=== PATIENT | female | born 1975 | race Caucasian/White ===

== ENCOUNTER 2023-06-28 19:58 | Outpatient (REF) | payer OTHER, SELFPAY ==
[2023-07-04 12:09] LABS: Age Gdln ACOG Testing Note (.); HPV Aptima Negative (Negative); IGP, Aptima HPV, rfx 16/18,45 Note (.)
== END 2023-06-28 19:59 | disposition home or self-care (01) ==
LOC: LAB 19:58
PROVIDERS: Visit Provider Obstetrics & Gynecology
DX: Z12.4 Encounter for screening for malignant neoplasm of cervix (principal)
CPT/HCPCS: 87624; G0145

== ENCOUNTER 2024-07-29 20:57 | Outpatient (REF) | payer OTHER, SELFPAY ==
[2024-08-05 20:08] LABS: Age Gdln ACOG Testing Note (.); HPV Aptima Negative (Negative); IGP, Aptima HPV, rfx 16/18,45 Note (.)
== END 2024-07-29 20:58 | disposition home or self-care (01) ==
LOC: LAB 20:57
PROVIDERS: Visit Provider Obstetrics & Gynecology
DX: Z01.419 Encounter for gynecological examination (general) (routine) without abnormal findings (principal)
CPT/HCPCS: 87624; 88175

== ENCOUNTER 2025-08-04 11:58 | Outpatient (REF) | payer OTHER, SELFPAY ==
--- OUTSIDE RECORDS SUMMARY | 2025-07-30 08:40 | XMS_ITS | Encounter Summary ---
Author Organization [facility] Address [address] [place] [address] Care Team Providers Care Game Artist Name Role Phone Yomaira Lynch MD Primary Care Provider [phone] Doretha Hammonds FIELD SOFTWARE ENGINEER Unavailable [phone] Reason for Visit * ReasonCommentsSkin Check Encounter Details DateTypeDepartmentCare Team (Latest Contact Info)Ojlvqzmspmj71/29/2025 9:40 AM EDTOffice Visit [facility] [address] [place] [address] Adriana Patel PA [address] [place] [address] Capillary angioma (Primary Dx); Seborrheic keratosis; Lentigo simplex; Dermatofibroma Social History Tobacco UseTypesPacks/DayYears UsedDateSmoking Tobacco: NeverPassive Smoke Exposure: NeverSmokeless Tobacco: NeverAlcohol UseStandard Drinks/WeekComments Yes0 (1 standard drink = 0.6 oz pure alcohol)Very rare occasionSocial Connection and Isolation PanelAnswerDate RecordedIn a typical week, how many times do you talk on the phone with family, friends, or neighbors?Twice a week02/27/2024How often do you get together with friends or relatives?Once a week02/27/2024How often do you attend mandaeism or uatsdin services?More than 4 times per year 02/27/2024o you belong to any clubs or organizations such as mandaeism groups, unions, fraternal or athletic groups, or school groups?No02/27/2024ttends Club or Organization MeetingsNot on file02/27/2024re you , , , , never , or living with a partner?Cjoehrm6402/27/2024UDIT-C AnswerDate RecordedQ1: How often do you have a drink containing alcohol?Monthly or less02/27/2024Q2: How many drinks containing alcohol do you have on a typical day when you are drinking?1 or Q3: How often do you have six or more drinks on one occasion?Never02/27/2024Overall Financial Resource Strain (CARDIA) AnswerDate RecordedHow hard is it for you to pay for the very basics like food, housing, medical care, and heating?Not hard at all02/27/2024HQ-2AnswerDate RecordedPatient Health Questionnaire-2 Fvexi927[facility] [place] of Occupational Health - Occupational Stress QuestionnaireAnswerDate RecordedDo you feel stress - tense, restless, nervous, or anxious, or unable to sleep at night because yourmind is troubled all the time - these days?Only a zyloat4402/27/2024 Exercise Vital SignAnswerDate RecordedOn average, how many days per week do you engage in moderate to strenuous exercise (like a brisk walk)?0 days02/27/2024On average, how many minutes do you engage in exercise at this level?0 min 02/27/2024Hunger Vital SignAnswerDate RecordedWithin the past 12 months, you worried that your food would run out before you got the money to buymore.Never true02/27/2024Within the past 12 months, the food you bought just didn't last and you didn't have money to get more.Never true02/27/2024RAPARE - TransportationAnswerDate RecordedIn the past 12 months, has lack of transportation kept you from medical appointments or from getting medications?No 02/27/2024In the past 12 months, has lack of transportation kept you from meetings, work, or from getting things needed for daily living?No02/27/2024 Housing Stability Vital SignAnswerDate RecordedIn the last 12 months, was there a time when you were not able to pay the mortgage or rent on time?No02/27/2024In the last 12 months, how many places have you lived?In the last 12 months, was there a time when you did not have a steady place to sleep or slept in ashelter (including now)?No02/27/2024CommentsNoSex and Gender InformationValueDate RecordedSex Assigned at MznizSnpsmp18/24/2023 10:19 AM EDT Legal YwtIcbfpv70/15/2023 6:33 PM EDTGender PcgoukogEaowmn96/24/2023 10:19 AM EDTSexual QqicbgxkkdqRlqoehlz62/28/2024 8:25 PM EDTdocumented as of this encounter Progress Notes * MINDI Connelly - 07/30/2025 9:40 AM EDT Skin Check Location: Patient requests a full body skin examination Dermatologic history: no history of skin cancer, no history of atypical moles Last visit: 1 year ago Established patient All pertinent medical history, medications, and allergies were reviewed. General Exam: alert, oriented to person, place, and time, normal affect, well appearing Unaccompanied Scalp, Examined , exam limited by hair Right leg Examined Head, Face Examined Left leg Examined Neck Examined Right foot Examined Chest Examined Left foot Examined Back Examined , limited by bra Buttocks Examined , limited by underwear Abdomen Examined Digits,nails: Examined Right arm Examined Patient is wearing nail swedish. Denies any dark streaks. Left arm Examined Lymphatics: Not examined Hands Examined Skin Exam 1. SEBORRHEIC KERATOSIS Generalized Stuck on verrucous, burnett-brown papules and plaques. Patient was counseled regarding these benign growths. Removal is normally not necessary, but they may be removed if they are symptomatic or for cosmetic reasons. 2. 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 The patient was informed that angiomas are benign growths on the the skin. No treatment is necessary. 3. LENTIGO SIMPLEX Generalized Scattered burnett macules in sun-exposed areas. The patient was informed that lentigines are benign pigmented lesions that occur on sun-exposed andsun-damaged skin. No treatment is necessary. Recommended regular use of broad spectrum sunscreen SPF 30 or higher 4. DERMATOFIBROMA Right Lower Leg - Posterior Firm brown papule that dimples with lateral pressure. Discussed that these are benign scars on the skin. If lesion is changing/symptomatic, return to office to have lesion re-evaluated Next Visit: 1 year, skin check documented in this encounter Plan of Treatment DateTypeDepartmentCare Team (Latest Contact Info)Dyuqcftvico81/05/2025 10:00 AM ESTClinical Support [facility] [address] [address] 03/02/2026 8:30 AM EDTOffice Visit [facility] [address] [place] [phone] Asha Lawrence NP [address], [place] [id number] 07/29/2026 9:50 AM EDTOffice Visit [facility] [address] [place] [address] Adriana Patel PA [address] [place] [address] 08/10/2026 8:30 AM ESTProcedure Visit [facility] [address] [place] [address] Reji Wall DO [address] [place], [place] [id number] documented as of this encounter Visit Diagnoses Diagnosis Capillary angioma- Primary Nevus, non-neoplastic Seborrheic keratosis Lentigo simplex Other dyschromia Dermatofibroma Benign neoplasm of skin, site unspecified documented in this encounter Additional Health Concerns AssessmentNoted TimePHQ-9 Depression Total Score: 11:03 AM EDT documented as of this encounter Care Teams Team MemberRelationshipSpecialtyStart DateEnd Date Yomaira Lynch MD PCP - GeneralFamily Medicine02/22/23 Doretha Hammonds NP Nurse PractitionerFamily Medicine02/22/23documented as of this encounter
--- OUTSIDE RECORDS SUMMARY | 2025-08-04 09:00 | XMS_ITS | Encounter Summary ---
Author Organization [facility] Address [address] [place] [address] Care Team Providers Care Transplant Nurse Name Role Phone Yomaira Lynch MD Primary Care Provider [phone] Doretha Hammonds PHYSICAL THERAPY PROFESSOR Unavailable [phone] Reason for Visit * ReasonCommentsGynecologic Exam Encounter Details DateTypeDepartmentCare Team (Latest Contact Info)Bfnbaumaupj55/03/2025 9:00 AM ESTOffice Visit [facility] [address] [place] [phone] Reji Wall DO [address] [place], [place] [id number] Well woman exam with routine gynecological exam; Encounter for screening mammogram for malignant neoplasm of breast; Postmenopausal state Social History Tobacco UseTypesPacks/DayYears UsedDateSmoking Tobacco: NeverPassive [...] relatives?Once a week02/27/2024How often do you attend congregation or mormon services?More than 4 times per year 02/27/2024o you belong to any clubs or organizations such as congregation groups, unions, fraternal or athletic groups, or school groups?No02/27/2024ttends Club or Organization MeetingsNot on file02/27/2024re you , , , , never , or living with a partner?Wovgkkt2302/27/2024UDIT-C AnswerDate RecordedQ1: How often do you have [...] heating?Not hard at all02/27/2024HQ-2AnswerDate RecordedPatient Health Questionnaire-2 Mprwo571Finshriners hospitals for [facility] [place] of Occupational Health - Occupational Stress QuestionnaireAnswerDate RecordedDo you feel stress - tense, restless, nervous, or anxious, or unable to sleep at night because yourmind is troubled all the time - these days?Only a yizgca7502/27/2024 Exercise Vital SignAnswerDate RecordedOn average, how many [...] steady place to sleep or slept in anawaltelter (including now)?No02/27/2024CommentsNoSex and Gender InformationValueDate RecordedSex Assigned at XsjqwOfrezo57/24/2023 10:19 AM EDT Legal DddQxagup84/15/2023 6:33 PM EDTGender QvvblkzmFlrjot22/24/2023 10:19 AM EDTSexual LjrydglydrhArnnhekf71/28/2024 8:25 PM EDTdocumented as of this encounter Last Filed Vital Signs Vital SignReadingTime TakenCommentsBlood Vzsrwuho228/7611 9:03 AM EST Pulse--Temperature--Respiratory Rate--Oxygen Saturation--Inhaled Oxygen Concentration--Iudjge304 kg (246 lb 12.8 oz)08/04/2025 9:03 AM ESTHeight--Body Mass Index36.9805 8:17 AM EDTdocumented in this encounter Progress Notes * Yesenia Cook MA - 08/04/2025 9:00 AM EST Reason for Appointment: Patient ID: Helga Alonso is a 49 y.o. female who presents for Gynecologic Exam Patient presents today for Annual Exam. MEDICATIONS Current Outpatient Medications Medication Instructions acetaminophen (Tylenol) 500 MG tablet Take by mouth albuterol HFA 90 mcg/act inhaler 2 puffs, Every 4 hours PRN estradiol (ESTRACE) 1 mg, Oral, Daily Ibuprofen 400 mg, Once loratadine (Claritin) 10 MG tablet Every 24 hours melatonin 5 MG tablet Take by mouth Multiple Vitamin (multivitamin) tablet 1 tablet, Daily omeprazole OTC (PRILOSEC OTC) 20 mg, Daily before breakfast Singulair 10 MG tablet Every 24 hours ALLERGIES Allergies Allergen Reactions Metformin Hcl Other Reaction(s): diarrhea Other Unknown PROBLEMS Active Ambulatory Problems Diagnosis Date Noted Abnormal glucose level 01/27/2023 Anxiety disorder, unspecified 01/27/2023 Calculus of kidney and ureter 01/27/2023 Enlarged thyroid 01/27/2023 Fatty liver 01/27/2023 Hypertriglyceridemia 01/27/2023 Internal derangement of right knee 01/27/2023 Left ventricular hypertrophy 01/27/2023 Low HDL (under 40) 01/27/2023 Mild intermittent asthma (HCC) 01/27/2023 Obesity (BMI 30-39.9) 01/27/2023 Osteoarthritis of lumbar spine 01/27/2023 Other lipoprotein metabolism disorders 01/27/2023 Postinflammatory pulmonary fibrosis (HCC) 01/27/2023 Polycystic ovaries 01/27/2023 Seasonal allergies 01/27/2023 Seborrheic keratoses 01/27/2023 Sensorineural hearing loss, bilateral 01/27/2023 SOB (shortness of breath) on exertion 01/27/2023 Status post hysterectomy 01/27/2023 Tinnitus 01/27/2023 Fatigue 02/23/2023 Screening mammogram for breast cancer 02/23/2023 Chronic pain of right knee 11/29/2023 Patellar tendonitis of right knee 11/29/2023 Thyroid nodule 03/20/2024 Allergic rhinitis 04/19/2024 ILD (interstitial lung disease) (HCC) 04/19/2024 Pulmonary granuloma (HCC) 04/19/2024 Reactive depression 04/21/2024 Well woman exam with routine gynecological exam 07/29/2024 TATYANA on CPAP 09/18/2024 Resolved Ambulatory Problems Diagnosis Date Noted No Resolved Ambulatory Problems Past Medical History: Diagnosis Date Arthritis Asthma (HCC) Benign neoplasm BMI 38.0-38.9,adult Breast cancer screening other than mammogram 02/22/2023 Calcified nodule Disorder of lipid metabolism GERD (gastroesophageal reflux disease) Hematuria IBS (irritable bowel syndrome) Pain in joint Pap smear for cervical cancer screening 04/29/2020 Skin neoplasm HISTORY PAST MEDICAL HISTORY SOCIAL HISTORY Past Medical History: Diagnosis Date Allergic rhinitis cause unspecified Arthritis Asthma (HCC) Benign neoplasm BMI 38.0-38.9,adult Breast cancer screening other than mammogram 02/22/2023 NEG Calcified nodule lung Calculus of kidney and ureter Disorder of lipid metabolism Fatty liver GERD (gastroesophageal reflux disease) Hematuria IBS (irritable bowel syndrome) Pain in joint multiple sites Pap smear for cervical cancer screening 04/29/2020 NEG Polycystic ovaries Skin neoplasm of uncertain behavior Social History Tobacco Use Smoking status: Never Passive exposure: Never Smokeless tobacco: Never Vaping Use Vaping status: Never Used Substance Use Topics Alcohol use: Yes Alcohol/week: 0.0 - 1.0 standard drinks of alcohol Comment: Very rare occasion Drug use: Never FAMILY HISTORY Family History Problem Relation Name Age of Onset Breast cancer Mother Agnes Cancer Mother Agnes No Known Problems Sister 2 sisters, healthy No Known Problems Brother 1 brother, healthy Cancer Maternal Grandfather [place] Melanoma Neg Hx SURGICAL HISTORY Past Surgical History: Procedure Laterality Date APPENDECTOMY BREAST LUMPECTOMY Right [address] Mendez HYSTERECTOMY 2008 w/ one ovary removed OOPHORECTOMY Left 05/2016 OTHER SURGICAL HISTORY 04/2016 urethral stent placement OTHER SURGICAL HISTORY 06/2016 stent removal PA ARTHROSCOPY KNEE DIAGNOSTIC W/WO SYNOVIAL BX SPX Right 2003 Dr. Pinto [place] ARTHROSCOPY KNEE DIAGNOSTIC W/WO SYNOVIAL BX SPX Right 10/29/[address] Pinto [place] REMOVAL, ABDOMEN LYMPH NODE,STAGING as a child US BIOPSY THYROID REVIEW OF SYSTEMS Review of Systems: Review of Systems Constitutional: Negative. HENT: Negative. Eyes: Negative. Respiratory: Negative. Cardiovascular: Negative. Gastrointestinal: Negative. Genitourinary: Negative. Musculoskeletal: Negative. Skin: Negative. Neurological: Negative. All other systems reviewed and are negative. Hematological: Negative. Endocrine: Negative. Allergic/Immunologic: Negative. OBJECTIVE Objective: Physical Exam Constitutional: Appearance: Normal appearance. She is well-developed. Genitourinary: Vulva normal. Right Adnexa: not tender and no mass present. Left Adnexa: not tender and no mass present. Cervix is absent. Uterus is absent. Breasts: Breasts are soft. Right: Normal. Left: Normal. HENT: Head: Normocephalic. Nose: Nose normal. Mouth/Throat: Mouth: Mucous membranes are moist. Cardiovascular: Rate and Rhythm: Normal rate and regular rhythm. Pulmonary: Effort: Pulmonary effort is normal. Breath sounds: Normal breath sounds. Abdominal: General: Bowel sounds are normal. There is no distension. Palpations: Abdomen is soft. Tenderness: There is no abdominal tenderness. There is no guarding or rebound. Musculoskeletal: General: No swelling. Normal range of motion. Cervical back: Normal range of motion. Right lower leg: No edema. Left lower leg: No edema. Neurological: General: No focal deficit present. Mental Status: She is alert and oriented to person, place, and time. Skin: General: Skin is warm and dry. Psychiatric: Mood and Affect: Mood normal. Behavior: Behavior normal. Vitals and nursing note reviewed. Exam conducted with a mechanical maintenance present. Vitals: Estimated body mass index is 36.98 kg/m?? as calculated from the following: Height as of 02/28/25: 5' 8.5 . Weight as of this encounter: 246 lb 12.8 oz. BP: 128/76 No LMP recorded (lmp unknown). Patient has had a hysterectomy. Assessment/Plan ICD-10-CM 1. Well woman exam with routine gynecological exam Z01.419 THIN PREP TIS PAP AND HR HPV DNA 2. Encounter for screening mammogram for malignant neoplasm of breast Z12.31 3. Postmenopausal state Z78.0 DEXA bone density DEXA bone density Annual: Patient presents today for an annual exam. Patient states she is doing well and has no complaints. Pap was obtained without difficulty and patient given mammogram order to have scheduled/obtained. Orders Placed This Encounter Procedures DEXA bone density Follow Up: Patient is to return in one year for annual unless needed otherwise. Documented by Yesenia Cook MA on behalf of: Reji Wall DO documented in this encounter Plan of Treatment DateTypeDepartmentCare Team (Latest Contact Info)Wjnscrqlzhn79/05/2025 10:00 AM ESTClinical Support [facility] [address] [place] [address] [place] [address] 03/02/2026 8:30 AM EDTOffice Visit [facility] [address] [place] [phone] Asha Lawrence NP [address] [place], [place] [address] 07/29/2026 9:50 AM EDTOffice Visit [facility] [address] [place] [address] Adriana Patel PA [address] [place] [address] 08/10/2026 8:30 AM ESTProcedure Visit [facility] [address] [place] [address] Reji Wall DO [address] [place] [address] NameTypePriorityAssociated DiagnosesOrder ScheduleDEXA bone densityImaging Routine Postmenopausal state Expected: 08/04/2025 (Approximate), Expires: 08/04/2026THIN PREP TIS PAP AND HR HPV DNAPathology and CytologyRoutine Well woman exam with routine gynecological exam Ordered: 08/04/2025documented as of this encounter Visit Diagnoses Diagnosis Well woman exam with routine gynecological exam Routine gynecological examination Encounter for screening mammogram for malignant neoplasm of breast Postmenopausal state Asymptomatic postmenopausal status (age-related) (natural) documented in this encounter Additional Health Concerns AssessmentNoted TimePHQ-9 Depression Total Score: 11:03 AM EDT documented as of this encounter Care Teams Team MemberRelationshipSpecialtyStart DateEnd Yomaira Lynch MD PCP - GeneralFamily Medicine02/22/23 Doretha Hammonds NP Nurse PractitionerFamily Medicine02/22/23documented as of this encounter
--- OUTSIDE RECORDS SUMMARY | 2025-08-04 12:03 | XMS_ITS | Encounter Summary ---
Author Organization [facility] Address [address] [place] [address] Care Team Providers Care Cylinder Filler Name Role Phone Yomaira Lynch MD Primary Care Provider [phone] Doretha Hammonds MOLD HOISTER Unavailable [phone] Encounter Details DateTypeDepartmentCare Team (Latest Contact Info)Flyhacfkzxz68/29/2025Travel Social History Tobacco UseTypesPacks/DayYears UsedDateSmoking Tobacco: NeverPassive [...] relatives?Once a week02/27/2024How often do you attend pentecostalism or cheondoism services?More than 4 times per year 02/27/2024o you belong to any clubs or organizations such as pentecostalism groups, unions, fraternal or athletic groups, or school groups?No02/27/2024ttends Club or Organization MeetingsNot on file02/27/2024re you , , , , never , or living with a partner?Phprlmn0802/27/2024UDIT-C AnswerDate RecordedQ1: How often do you have [...] heating?Not hard at all02/27/2024HQ-2AnswerDate RecordedPatient Health Questionnaire-2 Hhrpo363[facility] [place] of Occupational Health - Occupational Stress QuestionnaireAnswerDate RecordedDo you feel stress - tense, restless, nervous, or anxious, or unable to sleep at night because yourmind is troubled all the time - these days?Only a tquyli2702/27/2024 Exercise Vital SignAnswerDate RecordedOn average, how many [...] steady place to sleep or slept in [facility] (including now)?No4CommentsNoSex and Gender InformationValueDate RecordedSex Assigned at JczyoJtxetv68/24/2023 10:19 AM EDT Legal DlzEstrdm04/15/2023 6:33 PM EDTGender YaamttiiXjqvpy67/24/2023 10:19 AM EDTSexual KrhuampgdywWznvjgno95/28/2024 8:25 PM EDTdocumented as of this encounter Plan of Treatment DateTypeDepartmentCare Team (Latest Contact Info)Wreqwbxgyeq13/05/2025 10:00 AM ESTClinical Support [facility] [address] [place] [phone] 03/02/2026 8:30 AM EDTOffice Visit [facility] [address] [place] [address] Asha Lawrence, MEHRDAD [address] [place] [address] 07/29/2026 9:50 AM EDTOffice Visit [facility] [address] [place] [address] Adriana Patel PA [address] [place] [address] 08/10/2026 8:30 AM ESTProcedure Visit [facility] [address] [place] [phone] Reji Wall DO [address] [place], [place] [phone] documented as of this encounter Visit Diagnoses Not on filedocumented in this encounter Additional Health Concerns AssessmentNoted TimePHQ-9 Depression Total Score: 11:03 AM EDT documented as of this encounter Care Teams Team MemberRelationshipSpecialtyStart DateEnd Date Yomaira Lynch MD PCP - GeneralFami Medicine02/22/23 Doretha Hammonds NP Nurse PractitionerFaencompass rehabilitation hospital [facility] Medicine02/22/23documented as of this encounter
--- OUTSIDE RECORDS SUMMARY | 2025-08-04 12:03 | XMS_ITS | Encounter Summary ---
Author Organization [facility] Address [address] [place] [address] Care Team Providers Care Display And Banner Designer Name Role Phone Yomaira Lynch MD Primary Care Provider Doretha Hammonds TRANSCRIPTION Unavailable [phone] Encounter Details DateTypeDepartmentCare Team (Latest Contact Info)Zsnkahmgwya79/22/2025Travel Social History Tobacco UseTypesPacks/DayYears UsedDateSmoking Tobacco: NeverPassive [...] relatives?Once a week02/27/2024How often do you attend gnosticism or confucianist services?More than 4 times per year 02/27/2024o you belong to any clubs or organizations such as gnosticism groups, unions, fraternal or athletic groups, or school groups?No02/27/2024ttends Club or Organization MeetingsNot on file02/27/2024re you , , , , never , or living with a partner?Ctnxjqq6102/27/2024UDIT-C AnswerDate RecordedQ1: How often do you have [...] heating?Not hard at all02/27/2024HQ-2AnswerDate RecordedPatient Health Questionnaire-2 Hsyjq842Finj[facility] [place] of Occupational Health - Occupational Stress QuestionnaireAnswerDate RecordedDo you feel stress - tense, restless, nervous, or anxious, or unable to sleep at night because yourmind is troubled all the time - these days?Only a lbiroc4802/27/2024 Exercise Vital SignAnswerDate RecordedOn average, how many [...] steady place to sleep or slept in located within [facility] (including now)?No4CommentsNoSex and Gender InformationValueDate RecordedSex Assigned at UnwceRdewal09/24/2023 10:19 AM EDT Legal RbjDaivug66/15/2023 6:33 PM EDTGender HzhvlfwiZqcdda63/24/2023 10:19 AM EDTSexual OddtqaxypfxAggfvqql46/28/2024 8:25 PM EDTdocumented as of this encounter Plan of Treatment DateTypeDepartmentCare Team (Latest Contact Info)Rukzitmrndh19/05/2025 10:00 AM ESTClinical Support [facility] [address] [place] [phone] 03/02/2026 8:30 AM EDTOffice Visit [facility] [address] [place] [phone] Asha Lawrence, MEHRDAD [address] [place] [address] 07/29/2026 9:50 AM EDTOffice Visit [facility] [address] [place] [address] Adriana Patel PA [address] [place] [address] 08/10/2026 8:30 AM ESTProcedure Visit [facility] [address] [place] [phone] Reji Wall DO [address] [place], [place] [address] documented as of this encounter Visit Diagnoses Not on filedocumented in this encounter Additional Health Concerns AssessmentNoted TimePHQ-9 Depression Total Score: 11:03 AM EDT documented as of this encounter Care Teams Team MemberRelationshipSpecialtyStart DateEnd Date Yomaira Lynch MD PCP - GeneralFami Medicine02/22/23 Doretha Hammonds NP Nurse PractitionerFawestover air force base hospital Medicine02/22/23documented as of this encounter
--- OUTSIDE RECORDS SUMMARY | 2025-08-04 12:03 | XMS_ITS | Encounter Summary ---
Author Organization [facility] Address [address] [place] [address] Care Team Providers Care Market Master Name Role Phone Yomaira Lynch MD Primary Care Provider [phone] Doretha Hammonds UNEMPLOYMENT INSURANCE DIRECTOR Unavailable [phone] Encounter Details DateTypeDepartmentCare Team (Latest Contact Info)Ldkodtbrgxk80/03/2025amboo flowsheet [facility] [address] [place] [address] Reji Wall DO [address] [facility] [address] [place], [facility] [address] Social History Tobacco UseTypesPacks/DayYears UsedDateSmoking Tobacco: NeverPassive [...] relatives?Once a week02/27/2024How often do you attend jehovah's witness or yazidism services?More than 4 times per year 4Do you belong to any clubs or organizations such as jehovah's witness groups, unions, fraternal or athletic groups, or school groups?No02/27/2024ttends Club or Organization MeetingsNot on file02/27/2024re you , , , , never , or living with a partner?Lztdwjo9502/27/2024UDIT-C AnswerDate RecordedQ1: How often do you have [...] heating?Not hard at all02/27/2024HQ-2AnswerDate RecordedPatient Health Questionnaire-2 Fdudj432Finblue mountain hospital [place] of Occupational Health - Occupational Stress QuestionnaireAnswerDate RecordedDo you feel stress - tense, restless, nervous, or anxious, or unable to sleep at night because yourmind is troubled all the time - these days?Only a haqorf2602/27/2024 Exercise Vital SignAnswerDate RecordedOn average, how many [...] to sleep or slept in ashelter (including now)?No4CommentsNoSex and Gender InformationValueDate RecordedSex Assigned at SqkgbTnuypd50/24/2023 10:19 AM EDT Legal BkbDfqqfu25/15/2023 6:33 PM EDTGender HrcnycnrSmuxhg45/24/2023 10:19 AM EDTSexual HjkkyycxadxGzyeuoiw23/28/2024 8:25 PM EDTdocumented as of this encounter Plan of Treatment DateTypeDepartmentCare Team (Latest Contact Info)Tizjjljrzls27/05/2025 10:00 AM ESTClinical Support CH[facility] CREWS [address] [place] [address] [place] [address] 03/02/2026 8:30 AM EDTOffice Visit [facility] [address] [facility] [place] [address] Asha Lawrence, MEHRDAD [address] [facility] [place] [address] 07/29/2026 9:50 AM EDTOffice Visit [facility] [address] [place] [address] Adriana Patel PA [address] [place] [address] 08/10/2026 8:30 AM ESTProcedure Visit [facility] CRE[facility] [address] [place] [address] [place] [address] Reji Wall DO [address] [place] [address] [address] [place], [place] [id number] documented as of this encounter Visit Diagnoses Not on filedocumented in this encounter Additional Health Concerns AssessmentNoted TimePHQ-9 Depression Total Score: 11:03 AM EDT documented as of this encounter Care Teams Team MemberRelationshipSpecialtyStart DateEnd Date Yomaira Lynch MD PCP - GeneralFamily Medicine02/22/23 Doretha Hammonds NP Nurse PractitionerFamily Medicine02/22/23documented as of this encounter
--- OUTSIDE RECORDS SUMMARY | 2025-08-04 12:03 | XMS_ITS | Patient Health Record ---
Author Organization [facility] [place] Address [address] [place] [address] Care Team Providers Care Sales Representative Livestock Name Role Phone Yomaira Lynch Primary Care Provider Unavailabl e Allergies Allergen (clinical drug ingredient) Drug/Non Drug Allergy documented on EMR Reaction Allergy Type Onset Date Status Seasonal ICUnknownDrug AllergyActive Reason For Referral No Information Medications Medication SIG (Take, Route, Frequency, Duration) Notes Start Date End Date Status Loratadine 10 MG 1 tablet Orally Once a day 04/24/2024ctiveSingulair 10 MG1 tablet Orally Once a day04/24/2024ctive Estradiol 1 MG1 tablet Orally Once a day04/24/2024ctiveArnuity Ellipta 100 MCG/ACT1 puff Inhalation Once a day04/24/2024ctiveAlbuterol Sulfate HFA 108 (90 Base) MCG/ACT1 puff as needed Inhalation every 4 hrs04/24/2024ctiveCalcium + D 500-1000-40 QL-IBH-ZWZgy directed Hukwvn0704/24/2024ctiveDaily Vitamins -1 tablet Orally Once a day04/24/2024ctivebuPROPion HCl ER (XL) 150 MG1 tablet in the morning Orally Once a day04/24/2024ctiveFish Oil + D3 1244-6744 MG-UNIT1 capsule Orally Three times a day04/24/2024ctiveAcetaminophen 500 MG1 tablet as needed Orally every 6 hrs, prn04/24/2024ctiveIbuprofen 200 MG1 tablet with food or milk as needed Orally Three times a day07/24/2024Active Social History Tobacco Use: Social History Observation Description Date Details (start date - stop date) Never Smoker NA - NA Tobacco Control (Standard) Question Answer Notes Tobacco use: Nonsmoker Plan Of Treatment Pending Test Test Name Order Date CT Chest w/contrast * 12/11/2017 THYROID, RIGHT, FINE NEEDLE ASPIRATION 0 04/24/2024 Insurance Providers Payer Name Payer Address Payer Phone Subscriber Number Group Number Insured Name Patient Relationship to Insured Coverage Start Date Coverage End Date MMO [employer] [address] [place] [address] [id number] Ramses Alonso Spouse - patient is the spouse of the insured 8 [facility] INSURANCE COMPANYPO [address] JAYLENE MANZANARES [id number] lyman - patient is the spouse of the gflwwtu1410/02/2023[facility] CHOICE [address]AN[address] [place] [id number] Nyla Alonso - patient is the spouse of the insured Medical (General) History Medical History History ICD Code Anxiety AsthmaSeasonal AllergiesSurgical History Surgery Date(Month/Year) Removed lmpth node in lower abd, appendi x remeoval 1982 [place] teeth removal 1992 Rt Knee Sx 2003 Partial Hysterectomy 11/2007 Rt breast Biopsy 01/2008 Unilateral Oophorectomy-Rt 2009 Colonoscopy 12/2015 [place] In Ureter 04/2016 Unilateral Oophorectomy-left 05/2016 Rt Knee Sx 10/2021 Hospitalization History Reason Date(Month/Year) see sx above
--- OUTSIDE RECORDS SUMMARY | 2025-08-04 12:04 | XMS_ITS | Clinical Summary ---
Author Organization [facility] Address [address] [place] [address] Care Team Providers Care Iron Pellet Tester Name Role Phone Yomaira Lynch MD Primary Care Provider [phone] Doretha Hammonds PRODUCT ADVISOR Unavailable [phone] Allergies Active AllergyReactionsCriticalityNoted DateCommentsMetformin Hcl01/27/2023 Other Reaction(s): diarrhea KrqhkKspwkik68/29/2025 Medications MedicationSigDispense QuantityRefillsLast FilledStart DateEnd DateStatus Ibuprofen capsule Take 400 mg by mouth 1 timeActive loratadine (Claritin) 10 MG tablet 1 (one) time each day at the same time.Active Singulair 10 MG tablet 1 (one) time each day at the same time.Active omeprazole OTC (PriLOSEC OTC) 20 MG EC tablet Take 20 mg by mouth in the morning. Take before meals. Do not crush, chew, or split. .Active Multiple Vitamin (multivitamin) tablet Take 1 tablet by mouth in the morning.Active acetaminophen (Tylenol) 500 MG tablet Take by mouthActive albuterol HFA 90 mcg/act inhaler Inhale 2 puffs every 4 (four) hours if needed for wheezingActive melatonin 5 MG tablet Take by mouthActive estradiol (Estrace) 1 MG tablet Indications:Status post hysterectomyTAKE 1 TABLET DAILY 90 tablet 5Active clindamycin (Cleocin T) 1 % lotion Indications:Acne vulgarisApply thin layer to face, once daily in the morning, 30 day supply 60 mL 111Discontinued(Side effects) Active Problems ProblemNoted DateDiagnosed DateOSA on CPAP09/18/2024Well woman exam with routine gynecological exam07/29/2024eactive jxthjrpxwy01/21/2024llergic rhinitis 04/19/2024ILD (interstitial lung disease)04/19/2024ulmonary zvtmscvgo56/19/2024 Thyroid prfdwd3003/20/2024hronic pain of right knee11/29/2023atellar tendonitis of right knee11/29/20233892Ezfbwiq71/25/2023Screening mammogram for breast cancer 02/23/2023bnormal glucose level01/27/2023nxiety disorder, unspecified 01/27/2023alculus of kidney and saedst1101/27/2023Enlarged aisonzj5101/27/2023Fatty liver01/27/20236997Wexohmyyarwicvoiwked47/28/2023Internal derangement of right knee 01/27/2023Left ventricular rjnlgosofma99/28/2023Low HDL (under 40)01/27/2023Mild intermittent qduplw1601/27/2023Obesity (BMI 30-39.9)01/27/2023Osteoarthritis of lumbar spine01/27/2023Other lipoprotein metabolism ryfufndje20/28/2023 Postinflammatory pulmonary naemnkbh30/28/2023olycystic tdcnndi0601/27/2023 Seasonal nmcdmmnuz99/28/2023Seborrheic hljaqsqcw42/28/2023Sensorineural hearing loss, fjjbhqcas70/28/2023SOB (shortness of breath) on hnbtnjao61/28/2023Status post xnqateqcgwkw58/28/8627Stxohzog23/28/2023 Encounters DateTypeDepartmentCare VzhiQeqhdzkehum42/03/2025 9:00 AM ESTOffice Visit [facility] [address] [place] [address] [place] [address] Reji Wall, DO Well woman exam with routine gynecological exam; Encounter for screening mammogram for malignant neoplasm of breast; Postmenopausal state11/03/2025Bamboo flowsheet [facility] [address] [place] [address] Reji Wall DO 07/30/2025 9:40 AM EDTOffice Visit [facility] [address] [place] [address] Adriana Patel PA Capillary angioma (Primary Dx); Seborrheic keratosis; Lentigo simplex; Aemuzuihxpubhb25/29/6073Kgyqsv30/22/2025Travelfrom Last 3 Months Immunizations ImmunizationAdministration DatesNext DueInfluenza, High Dose Seasonal, Preservative Free08/05/2020Influenza, injectable, quadrivalent, preservative free09/03/2022,08/13/2018Pneumococcal Polysaccharide FHLG538110/13/2017Tdap 04/18/2016 Family History Medical HistoryRelationNameCommentsNo Known ProblemsBrother1 brother, healthy CancerMaternal GrandfatherDenverBreast cancerMotherVickyCancerMotherVickyNo Known ProblemsSister2 sisters, healthyMelanomaNeg HxRelationNameStatusComments BrotherFatherAliveMaternal GrandfatherDenverMotherVickyDeceasedSister Social History Tobacco UseTypesPacks/DayYears UsedDateSmoking Tobacco: NeverPassive Smoke Exposure: NeverSmokeless Tobacco: Never Tobacco Cessation:Counseling Given: Not Answered Alcohol UseStandard Drinks/WeekCommentsYes0 (1 standard drink = 0.6 oz pure alcohol)Very rare occasionSocial Connection and Isolation PanelAnswerDate RecordedIn a typical week, how many times do you talk on the phone with family, friends, or neighbors?Twice a week02/27/2024How often do you get together with friends or relatives?Once a week02/27/2024How often do you attend caodaism or anglican services?More than 4 times per year4Do you belong to any clubs or organizations such as caodaism groups, unions, fraternal or athletic gordo ups, or school groups?No02/27/2024ttends Club or Organization MeetingsNot on file02/27/2024re you , , , , never , or living with a partner?Vvjhjqx4102/27/2024UDIT-CAnswerDate RecordedQ1: How often do you have a drink containing alcohol?Monthly or less02/27/2024Q2: How many drinks containing alcohol do you have on a typical day when you are drinking?1 or Q3: How often do you have six or more drinks on one occasion?Never 02/27/2024Overall Financial Resource Strain (CARDIA)AnswerDate RecordedHow hard is it for you to pay for the very basics like food, housing, medical care, and heating?Not hard at all02/27/2024HQ-2AnswerDate RecordedPatient Health Questionnaire-2 Qxhjt304F[facility]. [facility] [place] of Occupational Health - Occupational Stress QuestionnaireAnswerDate RecordedDo you feel stress - tense, restless, nervous, or anxious, or unable to sleep at night because yourmind is troubled all the time - these days?Only a wwymsk2002/27/2024Exercise Vital Sign AnswerDate RecordedOn average, how many days per week do you engage in moderate to strenuous exercise (like a brisk walk)?0 days02/27/2024On average, how many minutes do you engage in exercise at this level?0 min02/27/2024Hunger Vital Sign AnswerDate RecordedWithin the past 12 months, you worried that your food would run out before you got the money to buymore.Never true02/27/2024Within the past 12 months, the food you bought just didn't last and you didn't have money to get more.Never true02/27/2024RAPARE - TransportationAnswerDate RecordedIn the past 12 months, has lack of transportation kept you from medical appointments or from getting medications?No02/27/2024In the past 12 months, has lack of transportation kept you from meetings, work, or from getting things needed for daily living?No02/27/2024Housing Stability Vital SignAnswerDate RecordedIn the last 12 months, was there a time when you were not able to pay the mortgage or rent on time?No02/27/2024In the last 12 months, how many places have you lived?1 02/27/2024In the last 12 months, was there a time when you did not have a steady place to sleep or slept in ashelter (including now)?No4Comments NoSex and Gender InformationValueDate RecordedSex Assigned at BirthFemale 02/22/2023 10:19 AM EDTLegal SfnYmxlfl01/15/2023 6:33 PM EDTGender Identity Rpecev2402/22/2023 10:19 AM EDTSexual MqixvrkefbqInxdteuq43/28/2024 8:25 PM EDT Last Filed Vital Signs Vital SignReadingTime TakenCommentsBlood Nllacgmp901/7611 9:03 AM EST Qdbgy286902/28/2025 8:17 AM EDTTemperature--Respiratory Rate--Oxygen Saturation-- Inhaled Oxygen Concentration--Sfitbr731 kg (246 lb 12.8 oz)08/04/2025 9:03 AM VEGQcblta665 cm (5' 8.5 )02/28/2025 8:17 AM EDTBody Mass Index36.98002/28/2025 8:17 AM EDT Plan of Treatment DateTypeDepartmentCare Team (Latest Contact Info)Uezfbuojxuc35/05/2025 10:00 AM ESTClinical Support CHANI Lau OBJennifer [address] [place] [address] [place] [address] 03/02/2026 8:30 AM EDTOffice Visit [facility] [address] [place] [address] Asha Lawrence, MEHRDAD [address] [place] [address] 07/29/2026 9:50 AM EDTOffice Visit [facility] [address] [place] [address] Adriana Patel PA [address] [place] [address] 08/10/2026 8:30 AM ESTProcedure Visit [facility] [address] [facility] [address] Reji Wall DO [address] [facility] [address] [place], [place] [id number] Insurance Advance Directives NameRelationshipHealthcare Agent RelationshipCommunicationMichael JosephSpouse First Alternate Health Care Agent* * Lianet AlonsoDalas palmas medical centerFirst Alternate Health Care Agent* * Huseyin Martinez Alternate Health Care Agent* * [email or web address] Care Teams Team MemberRelationshipSpecialtyStart DateEnd Date Yomaira Lynch MD PCP - GeneralFamily Medicine02/22/23 Doretha Hammonds NP Nurse PractitionerFami Medicine02/22/23
--- OUTSIDE RECORDS SUMMARY | 2025-08-04 12:04 | XMS_ITS | Clinical Summary ---
Author Organization [facility] Address [address] [place] [address] Phone Care Team Providers Care Bench Worker Helper Name Role Phone Unavailable Primary Care Provider Unavailabl e Social History Tobacco UseTypesPacks/DayYears UsedDateSmoking Tobacco: Never Assessed CommentsUnknownSex and Gender InformationValueDate RecordedSex Assigned at Not on fileLegal SlkHvrriu99/25/2022 12:21 PM ESTGender IdentityNot on file Sexual OrientationNot on file Plan of Treatment Health MaintenanceDue DateLast DoneCommentsCT Jkfyteizckor56/24/1975Colonoscopy 1974Colorectal Cancer Qbayrvqkb09/24/1975FIT-DNA (Cologuard)1974FIT 1974HIV Gzokavwpz08/24/1975Lipid Panel1974 7583Iwazxsrrocpqt00/24/1975 Yearly Adult Kfwvrbtn38/24/1975MMR Vaccines (1 of 1 - Standard series)1975 Hepatitis C Rdvbbnwun09/24/1993Hepatitis B Vaccines (1 of 3 - 19+ 3-dose series) 1993Cervical Cancer Lwtvanlmt17/24/1996HPV/Ukwadl0111/25/1995Pap Smear 1995DTaP/Tdap/Td Vaccines (1 - Tdap)11/25/19965732Ngogtnwdz21/24/2015 Pneumococcal Vaccine (1 of 1 - PCV)2024Zoster Vaccines (1 of 2)2024 Influenza Vaccine (#1)2025OVID-19 Vaccine (1 - 2024- season)2025 HIB VaccinesAged OutNo longer eligible based on patient's age to complete this topicHPV VaccinesAged OutNo longer eligible based on patient's age to complete this topicHepatitis A VaccinesAged OutNo longer eligible based on patient's age to complete this topicIPV VaccinesAged OutNo longer eligible based on patient's age to complete this topicMeningococcal VaccineAged OutNo longer eligible based on patient's age to complete this topicRotavirus VaccinesAged OutNo longer eligible based on patient's age to complete this topic
[2025-08-06 11:08] LABS: Age Gdln ACOG Testing Note (.); IGP, Aptima HPV, rfx 16/18,45 Note (.)
== END 2025-08-04 11:59 | disposition home or self-care (01) ==
LOC: LAB 11:58
PROVIDERS: Visit Provider Obstetrics & Gynecology
DX: Z01.419 Encounter for gynecological examination (general) (routine) without abnormal findings (principal)
CPT/HCPCS: 87624; 88175